=== PATIENT | female | born 1940 | race Caucasian/White ===

== ENCOUNTER → 2016-11-21 | Outpatient (CLI) | payer OTHER | LOC: CIMAGING 14:31 | DX: Z12.31 Encounter for screening mammogram for malignant neoplasm of breast (principal) | CPT/HCPCS: G0202 ==

== ENCOUNTER → 2017-11-22 | Outpatient (CLI) | payer OTHER | LOC: CIMAGING 11:29 | PROVIDERS: ATTEND Specialist | DX: Z12.31 Encounter for screening mammogram for malignant neoplasm of breast (principal) ==

== ENCOUNTER 2018-02-18 17:02 | Emergency (ER) | payer OTHER ==
--- NOTE | 2018-02-18 17:12 | EDPHY ---
H & P Time Seen by Provider: 02/18/18 17:12 HPI/ROS: HPI CHIEF COMPLAINT: Right foot pain HISTORY OF PRESENT ILLNESS: This is a 77-year-old female she is otherwise healthy, presents emergency room with right foot pain. She was moving heavy table around noon today and dropped on her right foot. This caused immediate pain to her right great toe and right 2nd toe. She now states the pain is minimal but she has swelling ecchymosis noted. She came to the emergency room for evaluation. Pain is minimal at this time 09/25. Past Medical History: Hypertension, hyperlipidemia, asthma Past Surgical History: Denies recent surgery Social History: Denies daily use of drugs alcohol tobacco. Family History: Noncontributory ROS REVIEW OF SYSTEMS: A comprehensive 10 point review of systems is otherwise negative aside from elements mentioned in the history of present illness. Exam Constitutional triage nursing summary reviewed, vital signs reviewed, awake/ alert. Eyes normal conjunctivae and sclera, EOMI, PERRLA. HENT normal inspection, atraumatic, moist mucus membranes, no epistaxis, neck supple/ no meningismus, no raccoon eyes. Respiratory clear to auscultation bilaterally, normal breath sounds, no respiratory distress, no wheezing. Cardiovascular rate normal, regular rhythm, no murmur, no edema, distal pulses normal. Gastrointestinal soft, non-tender, no rebound, no guarding, normal bowel sounds, no distension, no pulsatile mass. Genitourinary no CVA tenderness. Musculoskeletal right foot: Good distal pulse, good cap refill, noted over the 1st and 2nd toe there is ecchymosis and swelling present. She does have full range of motion. Over the area of the 1st great toe there is a very small laceration at the base of the nail bed. It is not large enough to repair. No subungual hematoma. Good cap refill. Full range of motion. Skin pink, warm, & dry, no rash, skin atraumatic. Neurologic awake, alert and oriented x 3, AAOx3, moves all 4 extremities equally, motor intact, sensory intact, CN II-XII intact, normal cerebellar, normal vision, normal speech. Psychiatric normal mood/affect. Heme/Lymph/Immune no lymphadenopathy. Differential Diagnosis: Includes but is not limited to in a particular order foot fracture, toe fracture, toe contusion, soft tissue injury, now been injury , nail fracture, nail bed laceration. Medical Decision Making: Plan for this patient x-ray the right foot, declined pain medicine here in emergency room. Most likely placed in a walking boot, and recommend ice, elevation, anti-inflammatory pain medicine. Will additionally recommend following up with orthopedics/podiatry Dr. Glasgow. Re-evaluation: X-ray of the foot reviewed. Shows no acute fracture of the right great toe. Patient has been splayed stayed in a walking boot. Recommend she follows up with Orthopedics. Recommending ice, elevation anti-inflammatories and rest. I discussed this with the patient she understands. Source: Patient - Personal History Tetanus Vaccine Date: < 10 years - Medical/Surgical History Hx Asthma: Yes Hx Chronic Respiratory Disease: No Hx Diabetes: No Hx Cardiac Disease: Yes Hx Renal Disease: No Hx Cirrhosis: No Hx Alcoholism: No Hx HIV/AIDS: No Hx Splenectomy or Spleen Trauma: No Other PMH: hyperlipidemia, HTN, asthma - Social History Smoking Status: Never smoked Constitutional: Initial Vital Signs Temperature (C) 36.6 C 02/18/18 17:12 Heart Rate 62 02/18/18 17:12 Respiratory Rate 20 02/18/18 17:12 Blood Pressure 138/64 H 02/18/18 17:12 O2 Sat (%) 94 02/18/18 17:12 O2 Delivery Mode Room Air Allergies/Adverse Reactions: ampicillin Allergy (Verified 02/18/18 17:19) Home Medications: Medication Instructions Recorded ALBUTEROL SULFATE PRN 08/25/16 ASPIRIN 08/25/16 Benicar 08/25/16 NIFEdipine 08/25/16 SIMVASTATIN 08/25/16 Calcium 02/18/18 Fish Oil 1,000 mg Softgel 02/18/18 Vitamin D3 02/18/18 Medical Decision Making - Diagnostics Imaging Results: Imaging Impressions Foot X-Ray 02/18/18 17:21 Impression: Acute fracture distal phalanx great toe. Departure - Departure Disposition: Home, Routine, Self-Care Condition: Good Instructions: Toe Fracture (ED) Additional Instructions: 1. Recommend icing over the next 48 hr 2. Keeping it elevated help swelling and pain. 3. Anti-inflammatory pain medicine like Tylenol Motrin. 4. Follow up with Orthopedics. Referrals: CARRIE MONTOYA [Primary Care Provider] - As per Instructions Eliseo Glasgow MD [Medical Doctor] - As per Instructions
[2018-02-18 17:16] VITALS: BP 138/64
== END 2018-02-18 18:15 | disposition home or self-care (01) ==
LOC: CED 17:02
DX: S92.421A Displaced fracture of distal phalanx of right great toe, initial encounter for closed fracture (principal); I10 Essential (primary) hypertension; J45.909 Unspecified asthma, uncomplicated; Z79.82 Long term (current) use of aspirin; W20.8XXA Other cause of strike by thrown, projected or falling object, initial encounter
CPT/HCPCS: 73630; 99283; L4386

== ENCOUNTER → 2018-12-09 | Outpatient (CLI) | payer OTHER | LOC: CIMAGING 12:42 | PROVIDERS: ATTEND Specialist | DX: Z12.31 Encounter for screening mammogram for malignant neoplasm of breast (principal) ==